=== PATIENT | female | born 1950 | race Caucasian/White ===

== ENCOUNTER 2025-05-22 08:40 | Outpatient (CLI) | payer MEDICARE, SELFPAY | END 2025-05-22 08:41 | disposition home or self-care (01) | LOC: WOUND 09:13 | PROVIDERS: PCP Student in an Organized Health Care Education/Training Program; Referring Provider Student in an Organized Health Care Education/Training Program; Visit Provider Family Medicine | DX: I87.313 Chronic venous hypertension (idiopathic) with ulcer of bilateral lower extremity (principal); L97.212 Non-pressure chronic ulcer of right calf with fat layer exposed; L97.812 Non-pressure chronic ulcer of other part of right lower leg with fat layer exposed; L97.222 Non-pressure chronic ulcer of left calf with fat layer exposed; E66.9 Obesity, unspecified; Z68.34 Body mass index [BMI] 34.0-34.9, adult; I89.0 Lymphedema, not elsewhere classified | CPT/HCPCS: 11042; 11045; G0463 ==

== ENCOUNTER 2025-05-29 10:47 | Outpatient (CLI) | payer MEDICARE, SELFPAY | END 2025-05-29 10:48 | disposition home or self-care (01) | LOC: WOUND 10:48 | PROVIDERS: PCP Student in an Organized Health Care Education/Training Program; Visit Provider Family Medicine | DX: I87.313 Chronic venous hypertension (idiopathic) with ulcer of bilateral lower extremity (principal); L97.222 Non-pressure chronic ulcer of left calf with fat layer exposed; L97.212 Non-pressure chronic ulcer of right calf with fat layer exposed; L97.812 Non-pressure chronic ulcer of other part of right lower leg with fat layer exposed; M17.0 Bilateral primary osteoarthritis of knee; E66.9 Obesity, unspecified; Z68.34 Body mass index [BMI] 34.0-34.9, adult | CPT/HCPCS: 11042; 11045 ==

== ENCOUNTER 2025-06-05 10:32 | Outpatient (CLI) | payer MEDICARE, SELFPAY | END 2025-06-05 10:33 | disposition home or self-care (01) | LOC: WOUND 10:32 | PROVIDERS: PCP Student in an Organized Health Care Education/Training Program; Visit Provider Family Medicine | DX: I87.313 Chronic venous hypertension (idiopathic) with ulcer of bilateral lower extremity (principal); L97.222 Non-pressure chronic ulcer of left calf with fat layer exposed; L97.212 Non-pressure chronic ulcer of right calf with fat layer exposed; L97.812 Non-pressure chronic ulcer of other part of right lower leg with fat layer exposed; E66.9 Obesity, unspecified; Z68.34 Body mass index [BMI] 34.0-34.9, adult; N17.9 Acute kidney failure, unspecified | CPT/HCPCS: 11042; 11045 ==

== ENCOUNTER 2025-06-05 11:34 | Outpatient (CLI) | payer MEDICARE, SELFPAY ==
[2025-06-05 21:36] LABS: Chloride* 98 mmol/L (96-114); Potassium* 3.4 mmol/L (3.6-5.1); Sodium* 134 mmol/L (135-149)
[2025-06-05 21:39] LABS: Blood Urea Nitrogen* 30 mg/dL (7-30); Creatinine* 1.5 mg/dL (0.5-1.5); Estimated Glomerular Filt Rate 37 ml/min
[2025-06-05 21:40] LABS: Anion Gap 7 mEq/L (7-15); Calcium* 8.8 mg/dL (8.4-10.6); Carbon Dioxide* 29 mmol/L (20-32); Glucose* 116 mg/dL (60-115)
== END 2025-06-05 11:35 | disposition home or self-care (01) ==
LOC: LAB 11:36
PROVIDERS: PCP Student in an Organized Health Care Education/Training Program; Visit Provider Student in an Organized Health Care Education/Training Program
DX: N17.9 Acute kidney failure, unspecified (principal)
CPT/HCPCS: 36415; 80048

== ENCOUNTER 2025-06-12 10:30 | Outpatient (CLI) | payer MEDICARE, SELFPAY | END 2025-06-12 10:31 | disposition home or self-care (01) | LOC: WOUND 10:31 | PROVIDERS: PCP Student in an Organized Health Care Education/Training Program; Visit Provider Nurse Practitioner Family | DX: I87.313 Chronic venous hypertension (idiopathic) with ulcer of bilateral lower extremity (principal); L97.222 Non-pressure chronic ulcer of left calf with fat layer exposed; L97.812 Non-pressure chronic ulcer of other part of right lower leg with fat layer exposed; M17.0 Bilateral primary osteoarthritis of knee | CPT/HCPCS: 11042; 97597 ==

== ENCOUNTER 2025-06-20 13:31 | Outpatient (CLI) | payer MEDICARE, SELFPAY | END 2025-06-20 13:32 | disposition home or self-care (01) | LOC: WOUND 13:31 | PROVIDERS: PCP Student in an Organized Health Care Education/Training Program; Visit Provider Nurse Practitioner Family | DX: I87.313 Chronic venous hypertension (idiopathic) with ulcer of bilateral lower extremity (principal); L97.222 Non-pressure chronic ulcer of left calf with fat layer exposed; L97.812 Non-pressure chronic ulcer of other part of right lower leg with fat layer exposed; M17.0 Bilateral primary osteoarthritis of knee | CPT/HCPCS: 97597; G0463 ==

== ENCOUNTER 2025-06-26 10:19 | Outpatient (CLI) | payer MEDICARE, SELFPAY | END 2025-06-26 10:20 | disposition home or self-care (01) | LOC: WOUND 10:19 | PROVIDERS: PCP Student in an Organized Health Care Education/Training Program; Visit Provider Family Medicine | DX: I87.313 Chronic venous hypertension (idiopathic) with ulcer of bilateral lower extremity (principal); L97.222 Non-pressure chronic ulcer of left calf with fat layer exposed; L97.812 Non-pressure chronic ulcer of other part of right lower leg with fat layer exposed; M17.0 Bilateral primary osteoarthritis of knee | CPT/HCPCS: 11042; 11045 ==

== ENCOUNTER 2025-07-03 10:29 | Outpatient (CLI) | payer MEDICARE, SELFPAY | END 2025-07-03 10:30 | disposition home or self-care (01) | LOC: WOUND 10:29 | PROVIDERS: PCP Student in an Organized Health Care Education/Training Program; Visit Provider Family Medicine | DX: I87.313 Chronic venous hypertension (idiopathic) with ulcer of bilateral lower extremity (principal); L97.222 Non-pressure chronic ulcer of left calf with fat layer exposed; L97.812 Non-pressure chronic ulcer of other part of right lower leg with fat layer exposed; M17.0 Bilateral primary osteoarthritis of knee | CPT/HCPCS: 11042; 11045 ==

== ENCOUNTER 2025-07-10 10:46 | Outpatient (CLI) | payer MEDICARE, SELFPAY | END 2025-07-10 10:47 | disposition home or self-care (01) | LOC: WOUND 10:46 | PROVIDERS: PCP Student in an Organized Health Care Education/Training Program; Visit Provider Family Medicine | DX: I87.313 Chronic venous hypertension (idiopathic) with ulcer of bilateral lower extremity (principal); L97.222 Non-pressure chronic ulcer of left calf with fat layer exposed; L97.812 Non-pressure chronic ulcer of other part of right lower leg with fat layer exposed; M17.0 Bilateral primary osteoarthritis of knee | CPT/HCPCS: 11042; 11045 ==

== ENCOUNTER 2025-07-17 10:33 | Outpatient (CLI) | payer MEDICARE, SELFPAY | END 2025-07-17 10:34 | disposition home or self-care (01) | LOC: WOUND 10:33 | PROVIDERS: PCP Student in an Organized Health Care Education/Training Program; Visit Provider Family Medicine | DX: I87.313 Chronic venous hypertension (idiopathic) with ulcer of bilateral lower extremity (principal); L97.222 Non-pressure chronic ulcer of left calf with fat layer exposed; L97.812 Non-pressure chronic ulcer of other part of right lower leg with fat layer exposed; M17.0 Bilateral primary osteoarthritis of knee | CPT/HCPCS: 11042; 11045 ==

== ENCOUNTER 2025-07-24 10:53 | Outpatient (CLI) | payer MEDICARE, SELFPAY | END 2025-07-24 10:54 | disposition home or self-care (01) | LOC: WOUND 10:53 | PROVIDERS: PCP Student in an Organized Health Care Education/Training Program; Visit Provider Family Medicine | DX: I87.313 Chronic venous hypertension (idiopathic) with ulcer of bilateral lower extremity (principal); L97.222 Non-pressure chronic ulcer of left calf with fat layer exposed; L97.812 Non-pressure chronic ulcer of other part of right lower leg with fat layer exposed; M17.0 Bilateral primary osteoarthritis of knee | CPT/HCPCS: 97597; 97598 ==

== ENCOUNTER 2025-07-31 10:41 | Outpatient (CLI) | payer MEDICARE, SELFPAY | END 2025-07-31 10:42 | disposition home or self-care (01) | LOC: WOUND 10:42 | PROVIDERS: PCP Student in an Organized Health Care Education/Training Program; Visit Provider Nurse Practitioner Family | DX: I87.313 Chronic venous hypertension (idiopathic) with ulcer of bilateral lower extremity (principal); I89.0 Lymphedema, not elsewhere classified; L97.812 Non-pressure chronic ulcer of other part of right lower leg with fat layer exposed; L97.222 Non-pressure chronic ulcer of left calf with fat layer exposed | CPT/HCPCS: 97597 ==

== ENCOUNTER 2025-08-07 10:38 | Outpatient (CLI) | payer MEDICARE, SELFPAY | END 2025-08-07 10:39 | disposition home or self-care (01) | LOC: WOUND 10:38 | PROVIDERS: PCP Student in an Organized Health Care Education/Training Program; Visit Provider Nurse Practitioner Family | DX: I87.311 Chronic venous hypertension (idiopathic) with ulcer of right lower extremity (principal); I89.0 Lymphedema, not elsewhere classified; L97.212 Non-pressure chronic ulcer of right calf with fat layer exposed | CPT/HCPCS: 97597 ==

== ENCOUNTER 2025-08-15 09:43 | Outpatient (CLI) | payer MEDICARE, SELFPAY | END 2025-08-15 09:44 | disposition home or self-care (01) | LOC: WOUND 09:43 | PROVIDERS: PCP Student in an Organized Health Care Education/Training Program; Visit Provider Nurse Practitioner Family | DX: I87.312 Chronic venous hypertension (idiopathic) with ulcer of left lower extremity (principal); I89.0 Lymphedema, not elsewhere classified; L97.222 Non-pressure chronic ulcer of left calf with fat layer exposed | CPT/HCPCS: 97597 ==